=== PATIENT | female | born 1985 | race Caucasian/White ===

== ENCOUNTER 2017-01-16 23:52 | Emergency (ER) | payer BC ==
--- NOTE | 2017-01-21 01:31 | ER ---
ADMIT: 01/16/2017 RM/LOC: ER [facility] MR#: [id number] [place], [place] [id number] [address] DEWITT [address] [place] [id number] Emergency Room Report SEX: F AGE: 31 : 1985 DATE: 01/16/2017 CHIEF COMPLAINT: High blood pressure. HISTORY OF PRESENT ILLNESS: A pleasant 31-year-old female, who presents complaining of high blood pressure. States she was at home which she took her blood pressure and it continued to climb. She phoned her friend who told her she should present to the ER as a blood pressure was quite high. At present, she admits to some shortness of breath and some chest discomfort. She does have a history of hypertension and supposed to have hydrochlorothiazide 12.5 mg daily. She has not been taking this medication as she states it makes her urinate if she takes after 3:00 p.m. Pain not worse with exertion. Denies any recent illness, cough, nausea, vomiting, abdominal pain, problems urinating, ankle swelling, problems with vision, or headache. COURSE IN THE EMERGENCY ROOM: The patient was seen and examined. She is afebrile and nontoxic. Blood pressure 143/86. She is in no acute distress. She is, however, anxious. HEENT, eyes are equal and reactive. Extraocular muscles are intact. Neck is soft and supple. No respiratory distress. Breath sounds are equal bilaterally. No wheezes, rhonchi, or rales. Heart is regular rate and rhythm. No murmurs, gallops, or rubs. Abdomen is soft and nontender. Skin is warm and dry. Extremities are nontender. No pedal edema. She is alert and oriented x4. EKG on her unremarkable. IMPRESSION: 1. Hypertension. 2. Chest wall pain. DISPOSITION: The patient was given a script for hydrochlorothiazide 12.5 mg tablets one tab p.o. daily #30. Should follow up with her primary care provider next week. Activity as tolerated. Continue all her other home medications. Return with worsening signs or symptoms. Tylenol and Motrin for pain. Questions sought and answered to the best of my ability and to the patient's satisfaction. Discharged in stable condition. GERARDO Garza / Alden Parr MD / tezl JOB #: [id number] CC: Alden Parr MD, Attending Physician Sergio Plasencia MD, Family Physician
== END 2017-01-17 01:00 | disposition home or self-care (01) ==
LOC: ER 23:52
DX: I10 Essential (primary) hypertension (principal); R07.89 Other chest pain